=== PATIENT | female | born 1985 | race Two or more races ===

== ENCOUNTER → 2019-04-17 | Emergency (ER) | payer OTHER ==
[~2019-04-17] VITALS: Ht 170.2 cm; Wt 83.9 kg
[~2019-04-17] MED LIST: FORTAMET500 MG; PRENATAL + DHA1 EAC1
== END | disposition left against medical advice (07) ==
LOC: ER 16:17
DX: Z53.20 Procedure and treatment not carried out because of patient's decision for unspecified reasons (principal)

== ENCOUNTER 2019-07-04 12:05 | Outpatient (CLI) | payer OTHER | END 2019-07-04 13:13 | disposition home or self-care (01) | LOC: NST 12:05 | DX: Z34.82 Encounter for supervision of other normal pregnancy, second trimester (principal) ==

== ENCOUNTER 2019-08-25 10:07 | Outpatient (CLI) | payer OTHER | END 2019-08-25 11:13 | disposition home or self-care (01) | LOC: NST 10:07 | PROVIDERS: ATTEND Obstetrics & Gynecology | DX: Z34.83 Encounter for supervision of other normal pregnancy, third trimester (principal) ==

== ENCOUNTER 2019-09-08 11:55 | Outpatient (CLI) | payer OTHER | END 2019-09-08 12:42 | disposition home or self-care (01) | LOC: NST 11:55 | PROVIDERS: ATTEND Obstetrics & Gynecology Maternal & Fetal Medicine | DX: Z34.83 Encounter for supervision of other normal pregnancy, third trimester (principal) ==

== ENCOUNTER 2019-09-22 11:39 | Outpatient (CLI) | payer OTHER | END 2019-09-22 12:25 | disposition home or self-care (01) | LOC: NST 11:39 | PROVIDERS: ATTEND Obstetrics & Gynecology | DX: Z34.83 Encounter for supervision of other normal pregnancy, third trimester (principal) ==

== ENCOUNTER 2019-10-03 09:07 | Inpatient (IN) | payer OTHER ==
[~2019-10-03] VITALS: Ht 167.6 cm; Wt 3.6 kg
[2019-10-12] MEDS ORDERED: METFORMIN HCL850 M1 (09:47)
== END 2019-10-15 12:56 | disposition home or self-care (01) | DRG 786 ==
LOC: ADM 10-05 13:45 → EDSTATUS 10-05 13:45 → LDR 10-12 05:24 → OB/GYN 10-12 05:24 → LDR 10-12 12:22 → OB/GYN 10-12 19:08
PROVIDERS: ADMIT Obstetrics & Gynecology; ATTEND Obstetrics & Gynecology
PROC: 4A1HXFZ Monitoring of Products of Conception, Cardiac Rhythm, External Approach (ICD-10-PCS; 2019-10-12)
PROC: 3E033VJ Introduction of Other Hormone into Peripheral Vein, Percutaneous Approach (ICD-10-PCS; 2019-10-12)
PROC: 10D00Z1 Extraction of Products of Conception, Low, Open Approach (ICD-10-PCS; principal; 2019-10-12 17:00)
DX: O82 Encounter for cesarean delivery without indication (principal); U07.1 COVID-19; O24.12 Pre-existing type 2 diabetes mellitus, in childbirth; O98.52 Other viral diseases complicating childbirth; O65.4 Obstructed labor due to fetopelvic disproportion, unspecified; Z3A.37 37 weeks gestation of pregnancy; Z37.0 Single live birth; E11.65 Type 2 diabetes mellitus with hyperglycemia

== ENCOUNTER 2019-10-07 08:21 | Outpatient (CLI) | payer OTHER | END 2019-10-07 09:13 | disposition home or self-care (01) | LOC: NST 08:21 | PROVIDERS: ATTEND Obstetrics & Gynecology | DX: Z34.83 Encounter for supervision of other normal pregnancy, third trimester (principal) ==

== ENCOUNTER 2019-10-11 11:36 | Outpatient (CLI) | payer OTHER ==
[2019-10-12] MEDS ORDERED: METFORMIN HCL850 M1 (09:47)
== END 2019-10-11 12:25 | disposition home or self-care (01) ==
LOC: NST 11:36
PROVIDERS: ATTEND Obstetrics & Gynecology
DX: Z34.83 Encounter for supervision of other normal pregnancy, third trimester (principal)

== ENCOUNTER 2023-04-16 11:29 | Outpatient (CLI) | payer OTHER ==
[~2023-04-16 11:29] MED LIST changes: +METFORMIN HCL850 M1
== END 2023-04-16 12:25 | disposition home or self-care (01) ==
LOC: NST 11:29
PROVIDERS: ATTEND Obstetrics & Gynecology Maternal & Fetal Medicine
DX: Z34.82 Encounter for supervision of other normal pregnancy, second trimester (principal)